=== PATIENT | female | born 1950 | race Caucasian/White ===

== ENCOUNTER → 2025-04-17 12:56 | Outpatient (REF) | payer MEDICARE, OTHER, SELFPAY ==
[2025-04-17 13:50] LABS: Hematocrit 44.6 % (37.0-47.0); Hemoglobin 15.2 g/dL (12.0-16.0); Mean Corp Hgb Conc. 34.1 g/dL (33.0-37.0); Mean Corpuscular Volume 95.5 fL (81.0-99.0); Nucleated Red Blood Cells % 0 %; Platelet Count 208 10^3/uL (130-400); Red Cell Dist. Width 12.9 % (11.5-14.5)
[2025-04-17 14:11] LABS: INR 1.54; PT 18.7 Sec (11.4-14.6)
[2025-04-17 14:14] LABS: ALT (SGPT) 21 U/L (0-35); AST (SGOT) 32 U/L (14-36); Albumin 4.5 g/dl (3.5-5.0); Alkaline Phosphatase 52 U/L (38-126); Blood Urea Nitrogen 18 mg/dl (7-17); Calcium 9.7 mg/dl (8.4-10.2); Carbon Dioxide 29 mmol/L (22-30); Chloride 101 mmol/L (98-107); Glucose 89 mg/dl (70-99); Magnesium 2.0 mg/dl (1.6-2.3); Potassium 4.4 mmol/L (3.5-5.1); Sodium 135 mmol/L (135-145); Total Protein 7.2 g/dl (6.3-8.2); eGFR > 60.00
== END ==
LOC: SDSPAT 12:56
PROVIDERS: ATTENDING PHYSICIAN Internal Medicine Cardiovascular Disease; FAMILY PHYSICIAN Family Medicine; OTHER PHYSICIAN Internal Medicine Cardiovascular Disease
DX: I48.91 Unspecified atrial fibrillation (principal)
CPT/HCPCS: 36415; 75572; 80053; 83735; 85025; 85610; 86850; 86900; 86901; 93005; Q9967

== ENCOUNTER 2025-04-25 05:57 | Day surgery (SDC) | payer MEDICARE, OTHER, SELFPAY ==
[2025-04-17 13:26] VITALS: BMI 21.4
[2025-04-25] VITALS (20 sets, daily range): BP systolic 95–134; BP diastolic 59–107; BMI 21.3
[2025-04-25] MEDS: TYLENOL 1000 MG PO (07:18)
[2025-04-25 08:50] LABS: ACT-LR - POC 397 Seconds (116-155)
[2025-04-25 09:21] LABS: ACT-LR - POC 297 Seconds (116-155)
[2025-04-25 09:40] LABS: ACT-LR - POC 319 Seconds (116-155)
--- NOTE | 2025-04-25 09:59 | ITS.CL.ABL ---
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
Ablation
Procedure Report:
Primary Cinder Crane Operator: Dr. Luis E Ely
Procedure Date: 04/25/2025
Patient History:
Patient is a pleasant 74-year-old female with a past medical history significant for hypothyroidism, anxiety, symptomatic persistent atrial fibrillation with recurrence following cardioversion.
See H&P for complete details.
Indication:
Symptomatic persistent atrial fibrillation
Arrhythmia Specific History:
Prior Medical Therapies for Rate and Rhythm Control:
X Beta-sejal
[ ] Calcium channel-sejal
[ ] Amiodarone
[ ] Dronederone
[ ] Sotalol
[ ] Flecainide
[ ] Dofetilide
[ ] Options limited by bradycardia
[ ] Options limited by comorbid renal disease
Prior Procedural Therapies for AF/AFL:
X Cardioversion
[ ] Pulmonary Vein Isolation
[ ] Posterior Wall Isolation
[ ] Additional lines (Specify)
[ ] Surgical Pat-MAZE or PVI (Specify)
Procedure Performed:
X AF ablation procedure (45663) -- includes LA/CS pacing, trans-septal, 3D mapping, + ICE
[ ] +IV drug (06925)
[ ] +Other Arrhythmia (12562)
[ ] +Other AF Line/ablation (54011)
Risks and expected recovery has been explained in detail. Alternative options have been explored, and in a shared-decision making fashion we have decided that this was the most appropriate procedure.
Method
NPO status confirmed. Grounding pad applied. Defibrillator pads applied. Continuous surface ECG, pulse oximetry, and blood pressure were monitored. Procedure was performed under general anesthesia, with anesthesia services.
Both groins were clipped, prepped with Chloraprep, and draped in sterile fashion. Time out was called. Local anesthesia administered with bupivacaine. The right femoral vein was accessed for catheter placement, using ultrasound guidance (images
saved to record), micro-puncture needle/wire, and modified seldinger technique. 3 sheaths were placed. The following catheters were used:
[ ] Tacticath SE (D/F Curve) ablation catheter
X Viewflex 9Fr ICE catheter
X Inquiry decapolar 6Fr diagnostic catheter
[ ] CRD Hex 6Fr
X FlexCath Contour 10 Fr with PulseSelect PFA Catheter
X Advisor HD Grid Mapping Catheter, SE
[ ] Acuson AcuNav 8 Fr ICE catheter
[ ]Other: [ ]
Intracardiac ultrasound (ICE) was carefully advanced into the right atrium to guide sheath placement over a J-wire, catheter placement, guide trans-septal puncture, identify potential complications, identify anatomic structures and ensure proper
contact between ablation catheter and tissue. A trace/small basal/posterior LV pericardial effusion was noted at the initiation of procedure. This remained unchanged throughout procedure and at case completion.
Heparin was given prior to trans-septal puncture. Heparin was given to achieve and maintain a target ACT of 300-400 seconds throughout the procedure.
Trans-septal access was performed under ICE guidance. The trans-septal puncture was performed with a SafeSept wire through a Brockenbrough needle assembly through the steerable sheath. The wire was visualized as it entered the LSPV and system
advanced under ICE guidance and fluoroscopy into the LA. The Brockenbrough needle assembly, SafeSept wire and sheath dilator were removed under negative pressure. LA pressure was measured and recorded.
ICE and 3D mapping was performed to identify relevant cardiac structures. A careful 3D map was created to assess for regions of low-voltage and abnormal electrogram signals using HD grid mapping catheter and PulseSelect catheter. Additional mapping
was performed as outlined below. A 200 J synchronized direct-current cardioversion was performed and mapping was performed in sinus rhythm.
Prior to ablation, glycopyrrolate was provided. PulseSelect catheter was advanced over J-wire to the ostium of each vein. Pulmonary vein isolation was performed with ostial and antral lesions in a circumferential manner. Contact was visualized via
EAM, ICE, fluoroscopy, and EGM signals.
Following completion of ablation lesions, a post-ablation voltage/activation map was performed in sinus rhythm. Entrance and exit block were confirmed for each vein.
Catheter and sheath were removed from the left atrium and post-ablation intracardiac echo evaluation was consistent with pre-ablation with no changes and no pericardial effusion and there is no left atrial thrombus or left ventricle thrombus seen.
Electrophysiology study was performed. Hemostasis was obtained with figure of 8 stitch for each groin and with manual pressure. Protamine was used for reversal.
Estimated Blood Loss
5 mL
Complications
None
Fluoroscopy: 3 minutes; 10.7 mGy; DAP 1.24
LA Pressure: 13 mmHg
Baseline Intervals:
Rhythm: AF
QRS: 104 ms
Post-Procedure Intervals:
TN: 124 ms
QRS: 109 ms
QT: 367 ms
QTc: 479 ms
A-A: 988 ms
R-R: 988 ms
AVWB: 410 ms
AVNERP: 600/250 ms
AERP: 600/250 ms
Recommendations
- Bedrest with straight-leg precautions as ordered
- Admit with anticipate discharge home tomorrow after overnight observation
- Resume home medications as indicated
- Ok to resume anticoagulation tonight if patient and groin sites stable
- Plan for follow-up in office as scheduled
Rg Chapin DO, FAC, [facility]
Clinical Cardiac Recycling Worker
cc: Dr Luis E Ely; Dr Kailee Riley
[2025-04-25 10:03] LABS: ACT-LR - POC 147 Seconds (116-155)
[2025-04-25 12:38] LABS: ACT-LR - POC > 397 Seconds (116-155)
[2025-04-25] MEDS: TOPROL XL 50 MG PO ×2 (13:49→22:23)
--- NOTE | 2025-04-25 14:03 | PTCARENOTE ---
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 AOx3. VSS. NSR w/ PACs on telemetry, confirmed by EKG. Figure of 8 suture clipped at 1355, dressing dry, intact. +2 peripheral pulses throughout. Discussed plan of care and anticipated time out of bed. Left w/
call reina in reach.
[2025-04-25] MEDS: XARELTO 20 MG PO (17:23)
--- NOTE | 2025-04-25 23:47 | PTCARENOTE ---
Assumed care of patient at change of shift. Tele monitor remains SR w/ occasional PACs/PVCs. Pt denies any chest discomfort or SOB at this time. Right groin dressing C/D/I, no hematoma noted at this time. Ambulating self in room w/out difficulty.
Reviewed POC w/ patient, call reina in reach.
[2025-04-26 03:56] VITALS: BP 111/68
[2025-04-26 04:25] LABS: Hematocrit 38.7 % (37.0-47.0); Hemoglobin 13.0 g/dL (12.0-16.0); Mean Corp Hgb Conc. 33.6 g/dL (33.0-37.0); Mean Corpuscular Volume 96.8 fL (81.0-99.0); Platelet Count 169 10^3/uL (130-400); Red Cell Dist. Width 12.9 % (11.5-14.5)
[2025-04-26 04:51] LABS: Blood Urea Nitrogen 17 mg/dl (7-17); Calcium 8.8 mg/dl (8.4-10.2); Carbon Dioxide 25 mmol/L (22-30); Chloride 105 mmol/L (98-107); Estimated Creatinine Clearance 73 ml/min; Glucose 118 mg/dl (70-99); Magnesium 2.0 mg/dl (1.6-2.3); Potassium 4.2 mmol/L (3.5-5.1); Sodium 132 mmol/L (135-145); eGFR > 60.00
[2025-04-26] MEDS: SYNTHROID 62.5 MCG PO (05:41)
[2025-04-26 07:12] VITALS: BP 103/67
--- NOTE | 2025-04-26 08:51 | W.PN.CARDCBS ---
Addendum entered and electronically signed by Nam Shields MD 04/26/25 09:08:
Patient seen and examined
Reviewed procedure report from yesterday
Agree with SUPERVISOR [employer]UST [employer]S note and assessment
Agree with SUPERVISOR [employer] plan
Sinus rhythm on telemetry overnight
The patient does not report any groin or chest pressure pain
Examination:
Nonfocal neurologically
Alert and x 3
JVP 6
Cor regular without murmur
Lungs clear to auscultation bilaterally
Remainder as per SUPER[employer]OR [employer] note and assessment
PCP: Kailee Fuentes MD
CDY: Luis E Ely MD
Impression:
Symptomatic persistent Atrial fibrillation
post PVI 04/25/25
Hypothyroidism
Anxiety
Plan:
tele SR with PAC's
OAC Xarelto
continue metoprolol 50mg bid
Activity restrictions reviewed
f/u Dr. Ely in 2 mo
home today
Original Note:
Today's Communication / Plan
-
post ablation stable for d/c home
Impression / Plan
-
PCP: Kailee Fuentes MD
CDY: Luis E Ely MD
Impression:
Symptomatic persistent Atrial fibrillation
post PVI 04/25/25
Hypothyroidism
Anxiety
Plan:
post ablation feels good
groin stable
tele SR with PAC's
OAC Xarelto
continue metoprolol 50mg bid
Activity restrictions reviewed
f/u Dr. Ely in 2 mo
home today
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
Subjective
Date of Service: April 26, 2025
denies cp, sob
Objective
Labs:
04/26/25 04:15
04/26/25 04:15
Labs
Hgb 13.0 g/dL (12.0-16.0) 04/26/25 04:15
Hct 38.7 % (37.0-47.0) 04/26/25 04:15
Plt Count 169 10^3/uL (130-400) 04/26/25 04:15
Sodium 132 mmol/L (135-145) L 04/26/25 04:15
Potassium 4.2 mmol/L (3.5-5.1) 04/26/25 04:15
BUN 17 mg/dl (7-17) 04/26/25 04:15
Creatinine 0.7 mg/dL (0.6-1.0) 04/26/25 04:15
Glucose 118 mg/dl (70-99) H 04/26/25 04:15
Vital Signs and I&O:
Vital Signs
Temp Pulse Resp BP Pulse Ox
98.6 F 63 20 111/68 95
04/26/25 07:12 04/26/25 06:00 04/26/25 07:12 04/26/25 03:56 04/26/25 07:12
Vital Signs
Temp Pulse Resp BP Pulse Ox
98.6 F 63 20 111/68 95
04/26/25 07:12 04/26/25 06:00 04/26/25 07:12 04/26/25 03:56 04/26/25 07:12
Intake & Output
04/24/25 04/25/25 04/26/25 04/27/25
06:59 06:59 06:59 06:59
Intake Total 360 / 360
Balance 360 / 360
Physical Exam
Physical Exam
NAD< AOX3
s1, S2, RRR
CTAB, non labored, no wheeze
SNTND bsx4
R fem site c/d/i no HT, soft
[2025-04-26 09:04] VITALS: BP 116/77
[2025-04-26] MEDS: TOPROL XL 50 MG PO (09:05)
--- NOTE | 2025-04-26 09:53 | W.DS.TRANS ---
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
-
Discharge Instructions:
Sleep Apnea Risk Low
Discharge Diagnosis/Procedures AFib, s/p ablation
Diet Low Cholesterol
Driving Restrictions No driving for 24 hours
Instructions:
Stand-Alone Forms: DC Instructions- Cath/EP Lab
Changes to Home Medications: No
Discharge Medications:
DC Medications w/original date entered in [employer]
acetaminophen 325 mg tablet (Tylenol) 650 mg PO ONCE Pain 04/16/25
calcium 600 mg (as carbonate)-vitamin D3 5 mcg (200 unit) tablet 1 tab PO BID 04/16/25
ciclopirox 8 % topical solution 1 applic topical HS 04/16/25
diphenhydramine HCl 25 mg tablet 25 mg PO HS PRN insomnia 04/16/25
ketotifen fumarate 0.025 % (0.035 %) eye drops ([place]) 1 drp ophthalmic (eye) BID PRN dry eye 04/16/25
levothyroxine 125 mcg tablet (Synthroid) 62.5 mcg PO DAILY 04/16/25
loperamide 2 mg capsule 2 mg PO QID PRN diarrhea 04/16/25
metoprolol succinate 50 mg tablet,extended release 24 hr 50 mg PO BID 04/16/25
zjlaxoexjunt-qdolwwmx-yjdmse tablet (Multivitamin 50 Plus tablet) 1 tab PO QPM 04/16/25
rivaroxaban 20 mg tablet (Xarelto) 20 mg PO QPM 04/16/25
Home Medication Changes
Pending Results: No
--- NOTE | 2025-04-26 10:04 | PTCARENOTE ---
Patient discharged to home. IV and telemetry removed. Instructions reviewed and patient verbalized understanding. Escorted to main lobby and assisted into daughters car
--- NOTE | 2025-04-26 15:59 | CM ---
pt prev nancy, lives with her daughter in a 2 story home. no dc planning needs or dmes. plan is for dc to home today.
== END 2025-04-26 10:43 | disposition home or self-care (01) ==
LOC: CATH 05:57
PROVIDERS: Nurse Practitioner; ATTENDING PHYSICIAN Internal Medicine Cardiovascular Disease; FAMILY PHYSICIAN Family Medicine; OTHER PHYSICIAN Internal Medicine Cardiovascular Disease
DX: I48.19 Other persistent atrial fibrillation (principal); Z79.01 Long term (current) use of anticoagulants; F41.9 Anxiety disorder, unspecified; E03.9 Hypothyroidism, unspecified; Z79.890 Hormone replacement therapy; Z79.899 Other long term (current) drug therapy; I49.1 Atrial premature depolarization
CPT/HCPCS: C1894; C1732; C1769; C1730; 80048; 83735; 85027; 85347; 86900; 86901; 93005; 93656; C1733; C1766